=== PATIENT | female | born 1950 | race Caucasian/White ===

== ENCOUNTER 2022-07-15 04:44 | Observation (INO) ==
[2022-07-15] MEDS ORDERED: methylPREDNISolone SOD SUC 125 MG/2 ML VIAL IV STA (05:32)
[2022-07-15] MEDS ORDERED: FAMOTIDINE 20 MG/2 ML VIAL IV STA (05:32)
[2022-07-15] MEDS ORDERED: diphenhydrAMINE 50 MG/1 ML VIAL IV STA (05:32)
[2022-07-15] MEDS ORDERED: EPINEPHrine 1 MG/ML VIAL ONE (05:42)
[2022-07-15] MEDS ORDERED: EPINEPHrine 1 MG/ML VIAL SUBCUT STA (06:19)
[2022-07-15] MEDS ORDERED: SODIUM CHLORIDE 0.9% 1,000 ML IV STA (06:42)
[2022-07-15 06:59] LABS: Basophils # 0.1 10*3/uL (0.0-0.2); Basophils % 0.3 % (0.0-0.8); Eosinophils # 0.1 10*3/uL (0.0-0.87); Eosinophils % 0.4 % (0.00-10.9); Hematocrit 40.1 VOL% (35.7-47.0); Hemoglobin 13.2 GM/DL (12.0-16.0); Immature Granulocytes % 0.8 %; Immature Granulocytes Absolute 0.16 #; Lymphocytes # 4.1 10*3/uL (1.4-4.0); Lymphocytes % 21.4 % (21.3-54.2); Mean Corpuscular HGB Conc 32.9 GM/DL (32-36); Mean Corpuscular Volume 92.4 FL (87-102); Mean Platelet Volume 10.9 FL (9.6-12.0); Monocytes # 0.8 10*3/uL (0.11-0.8); Monocytes % 4.1 % (1.7-12.7); Platelet Count 233 T/CUMM (130-400); Red Blood Count 4.34 MC/CUMM (3.8-5.5); Red Cell Distribution Width 13.7 % (9.3-17.3); White Blood Count 19.1 T/CUMM (4-12)
[2022-07-15] MEDS ORDERED: SODIUM CHLORIDE 0.9% 1,000 ML IV SCH (07:00)
[2022-07-15 07:15] LABS: Calcium 8.1 MG/DL (8.5-10.1); Osmolality,Calculated 287.1 MOS/KG (273-304); Potassium 3.2 MMOL/L (3.5-5.1)
[2022-07-15] MEDS ORDERED: ACETAMINOPHEN 325 MG TABLET PO PRN (07:52)
[2022-07-15] MEDS ORDERED: ONDANSETRON 4 MG/2 ML VIAL IV PRN (07:52)
[2022-07-15 08:05] LABS: Sedimentation Rate-Westergren 4 MM/HR (0-30)
[2022-07-15] MEDS: FAMOTIDINE 20 MG TABLET PO SCH (09:06)
[2022-07-15] MEDS: LEVOTHYROXINE 25 MCG TABLET PO SCH (09:06)
[2022-07-15] MEDS: diphenhydrAMINE 50 MG/1 ML VIAL IV PRN ×2 (09:11→16:03)
[2022-07-15] MEDS: SODIUM CHLORIDE 0.9% 1,000 ML IV SCH ×2 (12:34→23:03)
[2022-07-15] MEDS: POTASSIUM CHLORIDE 20 MEQ TABLET PO PRN ×4 (13:36→21:04)
[2022-07-16] MEDS: LEVOTHYROXINE 25 MCG TABLET PO SCH (05:35)
[2022-07-16 05:58] LABS: Basophils % 0.1 % (0.0-0.8); Hematocrit 32.1 VOL% (35.7-47.0); Hemoglobin 10.6 GM/DL (12.0-16.0); Immature Granulocytes % 0.5 %; Immature Granulocytes Absolute 0.07 #; Lymphocytes # 1.7 10*3/uL (1.4-4.0); Lymphocytes % 11.7 % (21.3-54.2); Mean Corpuscular Volume 91.7 FL (87-102); Monocytes # 0.8 10*3/uL (0.11-0.8); Monocytes % 5.4 % (1.7-12.7); Neutrophils % 82.3 % (38.7-73.9); Platelet Count 187 T/CUMM (130-400); Red Cell Distribution Width 14.2 % (9.3-17.3); White Blood Count 14.7 T/CUMM (4-12)
[2022-07-16 06:01] LABS: Albumin 3.2 G/DL (3.4-5.0); Bilirubin,Total 0.9 MG/DL (0.20-1.00); Calcium 8.3 MG/DL (8.5-10.1); Osmolality,Calculated 291.6 MOS/KG (273-304); Potassium 4.1 MMOL/L (3.5-5.1); Total Protein 5.4 G/DL (6.4-8.2)
[2022-07-16 07:26] VITALS: BP 118/56
[2022-07-16] MEDS: FAMOTIDINE 20 MG TABLET PO SCH (08:49)
[2022-07-16] MEDS: SODIUM CHLORIDE 0.9% 1,000 ML IV SCH (09:17)
== END 2022-07-16 10:17 | disposition home or self-care (01) ==
LOC: N.EDINP 04:44 → N.ED 04:44 → SUATTDRO 07:52 → N.EDINP 10:11 → N.3E 10:36
PROVIDERS: ADMIT Internal Medicine; ATTEND Internal Medicine